=== PATIENT | male | born 1995 | race Hispanic/Latino ===

== ENCOUNTER 2022-04-22 00:22 | Emergency (ER) | payer OTHER ==
--- OUTSIDE RECORDS SUMMARY | 2022-04-22 00:25 | XMS REPORT | Continuity of Care Document ---
:1995 Author Organization [facility] t Address [address] [place] [address] Care Team Providers Name Role Phone GinnaAaronmukul Lehman Attending Clinician Unavailable FERNANDO KOHLER Attending Clinician Unavailable DESTINI VU Attending Clinician Unavailable Bernstein_H Attending Clinician Unavailable Bui_Q_WAG Attending Clinician Unavailable Ray Cho Admitting Clinician Unavailable Bernstein_H Admitting Clinician Unavailable Bui_Q_WAG Admitting Clinician Unavailable Payers Payer Name Policy Type Policy Number Effective Date Expiration Date Jude MIKE (EPO) [id number] 2018 00:00:00 Problems This patient has no known problems. Allergies, Adverse Reactions, Alerts Allergy Allergy Status Severity Reaction(s) Onset Inactive Treating Comm ents Source Name Type Date Date Clinician No Known DA Active U 2021-02 [facility] No Known DA Active U [facility] SEASONAL Allergy Active Mild Other [place] [facility] ([facility]) to Family substanc Practic e e Social History Smoking Status Start Date Stop Date Source Former Smoker [facility] Medications Ordered Filled Start Stop Current Ordering Indication Dosage Frequency Signature Comments Components Source Medication Medication Date Date Medication? Clinician (SIG) Name Name ciclopirox ciclopirox No ciclopirox [facility] 8 % topical 8 % topical 8 % F amily solution solution topical Prac tic APPLY TO APPLY TO solution e FUNGUS FUNGUS APPLY TO INFECTED INFECTED FUNGUS NAIL ONCE NAIL ONCE INFECTED DAILY DAILY NAIL ONCE PREFERABLY PREFERABLY DAILY AT BEDTIME AT BEDTIME PREFERABLY OR 8 HOURS OR 8 HOURS AT BEDTIME BEFORE BEFORE OR 8 HOURS WASHING WASHING BEFORE WASHING terbinafine terbinafine No 1 Q1D terbinafin [facility] HCl 250 mg HCl 250 mg e HCl 250 Family tablet Take tablet Take mg tablet Practic 1 tablet 1 tablet Take 1 e every day every day tablet by oral by oral every day route as route as by oral directed directed route as for 30 for 30 directed days. days. for 30 days. Vital Signs Vital Name Observation Time Observation Value Comments Source Height 2019-09-28 00:00:00 65 [in_i] [facility] BMI (Body Mass 2019-09-28 00:00:00 21.6 kg/m2 [facility] Index) Practice Body Weight 2019-09-28 00:00:00 130 [lb_av] [facility] Procedures This patient has no known procedures. Plan of Care Planned Activity Planned Date Details Comments Source Diagnostic Test 2019-09-28 ALT (alanine [facility] Pending 00:00:00 aminotransferase), Practice serum or plasma [code = ALT (alanine aminotransferase), serum or plasma] Diagnostic Test 2019-09-28 AST/SGOT (aspartate [facility] Pending 00:00:00 aminotransferase), Practice serum or plasma [code = AST/SGOT (aspartate aminotransferase), serum or plasma] Diagnostic Test 2019-09-28 creatinine, serum [facility] Pending 00:00:00 or plasma [code = Practice creatinine, serum or plasma] Diagnostic Test 2019-09-28 hepatitis C virus [facility] Pending 00:00:00 RNA, quant, PCR, Practice serum or plasma [code = hepatitis C virus RNA, quant, PCR, serum or plasma] Encounters Start End Encounter Admission Attending Care Care Encounter Source Date/Time Date/Time Type Type Clinicians Facility Department ID 2021-12-30 2021-12-30 Outpatient Jean Claude Riggins [facility] [id number] [facility] 07:25:00 07:25:[address] [facility] 2021-12-06 2021-12-06 Emergency E VERNELL KOHLERSE [facility] [id number] 03:49:00 14:19:[address] [facility] 2021-01-20 2021-01-20 Emergency E DESTINI VU SE MED [id number] 04:46:00 05:17:00 [facility] 2020-12-13 2020-12-13 Emergency E VERNELL KOHLERSE SE [id number] 10:32:00 13:42:00 [facility] 2020-03-24 2020-03-24 Outpatient Bernstein_H VFP VFP [id number] [facility] 12:08:00 12:08:00 Family Practic e 2019-10-27 2019-10-27 Outpatient Bui_Q_WAG VFP VFP [id number] [facility] 11:48:00 11:48:00 Family Practic e 2019-10-07 2019-10-07 Outpatient Bui_Q_WAG VFP VFP [id number] [id number] [facility] 02:02:00 02:02:00 [id number] Family Practic e 2019-10-01 2019-10-01 Outpatient Bui_Q_WAG VFP VFP [id number] [id number] [facility] 07:39:00 07:39:00 [id number] Family Practic e 2019-09-28 2019-09-28 Outpatient Bui_Q_WAG VFP VFP [id number] [id number] [facility] 05:09:00 05:09:00 Family Practic e 2019-09-28 2019-09-28 Ronnalyn VFP [place] - [id number] [facility] 00:00:00 00:00:00 [facility] Famil y RNFA: [id number] - Pract [place] [address], ([facility] [place] [address] , Ph. 2019-09-27 2019-09-27 Outpatient Bui_Q_WAG VFP VFP [id number] [facility] 03:50:00 03:50:00 Family Practic e Results Test Description Test Time Test Comments Results Result [facility] e Comments - XR FLUORO NDL 2021-12-30 14:57:00 [facility]Name: SUDARSHAN GONZALEZ : 1995 Sex: M Name: SUDARSHAN GONZALEZ [facility] : 1995 Age/S: 26 / M [address] Unit #: [id number] Loc: [place] [address] Phys: Jean Claude Chacko MD Acct: [id number] Dis Date: Status: [facility] PHONE #: [phone] Exam Date: 12/30/2021 1130 FAX #: [phone] Reason: EXAMS: CPT CODE: [id number] XR FLUORO NDL 83627 Fluoro Time: DAP (Gy m2): Air Kerma (mGy): REASON FOR EXAM: Back pain with radiculopathy Exam order date: 12/30/2021 11:23 AM Ordering:MD Tammie Location:[facility] PROCEDURE: Lumbar myelogram FINDINGS: After informed consent was obtained, the patient was brought to special procedures and placed prone on the table. All maximal barrier technique was applied, including washing hands with conventional soap and water or with alcohol-based hand rubs (ABHR), skin preparation, cap, mask, sterile gown, sterile gloves and sterile full body drape. Following the superficial and deep application of the local anesthetic, under fluoroscopic guidance, a spinal needle was advanced into L2 intervertebral foramen. Approximately 20 cc of CSF fluid was delivered into the intrathecal portion of the lumbar spine through the spinal needle MEDICATIONS: None. COMPLICATIONS: None. Blood loss: less than 5cc Radiation dose:25 sec Radiation time:6 mGy (Dose Area Product) Number of fluoroscopic images obtained: 4 images saved to PACS IMPRESSION: Technically successful lumbar myelogram at 1457 Reported and signed by: Jean Claude Chacko M.D. CC: Jean Claude Chacko MD; Ray Cho MD Technologist: Shelly Abreu RT(R) Trnscb Date/Time: 12/30/2021 (8827) NoahL Orig Print D/T: S: 12/30/2021 (1500) PAGE 1 Signed Report - XR MYELOGRAM 2021-12-30 L-SPINE 14:57:00 [facility])Name: KIRAN GONZALEZEL : 1995 Sex: M Name: SUDARSHAN GONZALEZ [facility] : 1995 Age/S: 26 / M [address] Unit #: [id number] Loc: [place] [address] Phys: Jean Claude Chacko MD Acct: [id number] Dis Date: Status: [facility] PHONE #: [phone] Exam Date: 12/30/2021 1130 FAX #: [phone] Reason: EXAMS: CPT CODE: [id number] XR MYELOGRAM L-SPINE 44661 Fluoro Time: 25 DAP (Gy m2): 0.90 Air Kerma (mGy): 6 REASON FOR EXAM: Back pain with radiculopathy Exam order date: 12/30/2021 11:23 AM Ordering:MD Tammie Location:[facility] PROCEDURE: Lumbar myelogram FINDINGS: After informed consent was obtained, the patient was brought to special procedures and placed prone on the table. All maximal barrier technique was applied, including washing hands with conventional soap and water or with alcohol-based hand rubs (ABHR), skin preparation, cap, mask, sterile gown, sterile gloves and sterile full body drape. Following the superficial and deep application of the local anesthetic, under fluoroscopic guidance, a spinal needle was advanced into L2 intervertebral foramen. Approximately 20 cc of CSF fluid was delivered into the intrathecal portion of the lumbar spine through the spinal needle MEDICATIONS: None. COMPLICATIONS: None. Blood loss: less than 5cc Radiation dose:25 sec Radiation time:6 mGy (Dose Area Product) Number of fluoroscopic images obtained: 4 images saved to PACS IMPRESSION: Technically successful lumbar myelogram at 1457 Reported and signed by: Jean Claude Chacko M.D. CC: Jean Claude Chacko MD; Ray Cho MD Technologist: Shelly WRIGHT(R) Trnscb Date/Time: 12/30/2021 (009) Arlyn Orig Print D/T: S: 12/30/2021 (8624) PAGE 1 Signed Report - CT L-SPINE 2021-12-30 W/CONTRAST 14:09:00 [facility])Name: SUDARSHAN GONZALEZ : 1995 Sex: M Name: SUDARSHAN GONZALEZ [facility] : 1995 Age/S: 26 / M [address] Unit #: [id number] Loc: [place] [address] Phys: Jean Claude Chacko MD Acct: [id number] Dis Date: Status: [facility] PHONE #: [phone] Exam Date: 12/30/2021 1144 FAX #: [phone] Reason: MYLEOGRAM EXAMS: CPT CODE: [id number] CT L-SPINE W/CONTRAST 30030 REASON FOR EXAM: Severe lower back pain associated with radiculopathy EXAM ORDER DATE: 12/30/2021 11:36 AM Ordering: MD Tammie Location:[facility] PROCEDURE: - CT L-SPINE W/CONTRAST FINDINGS: CT images of the lumbar spine were obtained without IV contrast at 2.5mm. Intrathecal contrast from the recent myelogram is present. Reconstructed coronal and sagittal images were also provided. Dose modulation, iterative reconstruction, and/or weight based adjustment of the MA/KV was utilized to reduce the radiation dose to as low as reasonably achievable. The osseous structures are unremarkable. No evidence of cord compression L1-2: Unremarkable L2-3: Unremarkable L3-4: Minimal broad-based disc herniation approximately 3 mm. Minimal mass effect on the thecal sac. Minimal narrowing of bilateral neural foramen L4-5: Minimal broad-based disc herniation approximately 4 mm. Minimal mass effect on the thecal sac. Minimal narrowing of bilateral neural foramen L5-S1: Minimal broad-based disc herniation approximately 3 mm. Minimal mass effect on the thecal sac. Minimal narrowing of bilateral neural foramen IMPRESSION: Minimal broad-based base disc herniation with minimal mass effect on the thecal sac and narrowing of the neuroforamen as described above at L3-4, L4-5, and L5-S1. at 1409 Reported and signed by: Jean Claude Chacko M.D. PAGE 1 Signed Report (CONTINUED) Name: SUDARSHAN GONZALEZ [facility] : 1995 Age/S: 26 / M [address] Unit #: [id number] Loc: [place], [place] [address] Phys: Jean Claude Chacko MD Acct: [id number] Dis Date: Status: [facility] PHONE #: [phone] Exam Date: 12/30/2021 1144 FAX #: [phone] Reason: MYLEOGRAM EXAMS: CPT CODE: [id number] CT L-SPINE W/CONTRAST 50047 (Continued) CC: Jean Claude Chacko MD; Ray Cho MD Technologist:Michelle Phan,RT(R),CT CTDI: DLP: Trnscb Date/Time: 12/30/2021 (1409) tED.VTL Orig Print D/T: S: 12/30/2021 (8678) PAGE 2 Signed Report PROTHROMBIN TIME 2021-12-30 09:23:00 Test Item Value Reference Range Interpretation Comme nts PROTHROMBIN TIME PATIENT (test 13.4 seconds 9.0-14.0 N code = PTP) INTERNATIONAL NORMAL RATIO 1.2 0.8-1.2 N T he therapeutic range for oral (test code = INR) anticoagul ant therapy formost indications is an international normalized rati o (INR)of between 2.0 and 3.0. The recommended the rapeutic INRrange for va rious clinical situations is l isted below: _Clinical Situa tion INR range Pulmonary embol ism treatment (2.0-3.0)Venous thrombosis treatmentVenous thrombosis prophylaxis (hi gh risk surgery)Prevent ion of systemic embolism from: Acute myocardial infarction Valv ular heart disease Atrial fibrillation Mechanical pros thetic heart valves (2.5-3.5 ) IS PATIENT ON ANTICOAGULANTS? NTHROMBOPLASTIN TIME [id number] 09:23:00 Test Item Value Reference Range Interpretation Comments THROMBOPLASTIN TIME PARTIAL 44.4 seconds 23.0-37.0 H (test code = PTT) IS PATIENT ON ANTICOAGULANTS? NPLATELET [id number] 09:16:00 Test Item Value Reference Range Interpretation Comments PLATELET COUNT (test code = PLT) 208 K/mm3 150-450 N
[2022-04-22 01:27] LABS: SARS-COV-2 RT PCR NEGATIVE (NEGATIVE)
[2022-04-22 01:53] LABS: Absolute Lymphocytes (CBC) 3.2 K/uL (0.7-4.9); Hematocrit 43.4 % (39.6-49.0); Lymphocytes % 37.9 % (15.3-44.8); MCV 86.4 fL (80-100); MPV 8.9 fL (7.6-11.3); RBC Red Blood Cell Count 5.02 M/uL (4.33-5.43)
[2022-04-22] MEDS ORDERED: PROMETHAZINE 25 MG TABLET ONE (01:59)
[2022-04-22] MEDS ORDERED: CODEINE 30MG/APAP 300MG TAB ONE (01:59)
[2022-04-22] MEDS ORDERED: NACHLORIDE 0.45% 1,000 ML IV ONE ×2 (02:00→02:44)
[2022-04-22] MEDS ORDERED: ONDANSETRON 4 MG/2 ML VIAL ONE (02:00)
[2022-04-22 02:15] LABS: Albumin 3.9 g/dL (3.4-5.0); Bilirubin Direct 0.1 mg/dL (0-0.2); Bilirubin Total 0.5 mg/dL (0.2-1.0); Potassium 3.7 mmol/L (3.5-5.1); Protein, Total 7.8 g/dL (6.4-8.2)
--- NOTE | 2022-04-22 02:18 | ER ---
Nurse's Notes [facility] Name: Tommie Meneses Age: 26 yrs Sex: Male : 1995 Arrival Date: 04/22/2022 Time: 00:26 Bed 20 Private MD: Diagnosis: Acute bronchitis, unspecified;Nausea with vomiting, unspecified Presentation: 04/22 00:45 Chief complaint: Patient states: cough for about a week getting worse with N/V , nose ke1 bleed , on ABT amoxicillin for 2 days now. Coronavirus screen:. Ebola Screen: No symptoms or risks identified at this time. Initial Sepsis Screen: Does the patient meet any 2 criteria? No. Patient's initial sepsis screen is negative. Does the patient have a suspected source of infection? No. Patient's initial sepsis screen is negative. Initial Sepsis Screen: Does the patient have a suspected source of infection? Yes:. Risk Assessment: Do you want to hurt yourself or someone else? Patient reports no desire to harm self or others. Onset of symptoms was April 18, 2022. 00:45 Method Of Arrival: Ambulatory ke1 00:45 Acuity: MILAGRO 3 ke1 00:53 Coronavirus screen: Vaccine status: Patient reports receiving the 2nd dose of the covid ke1 vaccine. Triage Assessment: 00:53 General: Appears in no apparent distress. Behavior is appropriate for age. Pain: Denies ke1 pain. GI: Reports nausea, vomiting, since yesterday. Historical: - Allergies: 00:53 No Known Allergies; ke1 - PMHx: 00:53 None; ke1 - PSHx: 00:53 None; ke1 - Immunization history:: Adult Immunizations up to date. - Social history:: Smoking status: Patient/guardian denies using tobacco, the patient reports quitting approximately 6 years ago. - Family history:: not pertinent. - Hospitalizations: : No recent hospitalization is reported. - History obtained from: spouse. Screenin:00 Abuse screen: Denies threats or abuse. Denies injuries from another. Nutritional ha1 screening: No deficits noted. 01:00 [facility] ED Fall Risk Assessment (Adult) History of falling in the last 3 months, ke1 including since admission No falls in past 3 months (0 pts) Confusion or Disorientation No (0 pts) Intoxicated or Sedated No (0 pts) Impaired Gait No (0 pts) Mobility Assist Device Used No (0 pt) Altered Elimination No (0 pt) Score/Fall Risk Level 0 - 2 = Low Risk. Tuberculosis screening: No symptoms or risk factors identified. Assessment: 01:00 GI: Abdomen is round non-distended. ke1 03:10 Reassessment: Patient and/or family updated on plan of care and expected duration. Pain ha1 level reassessed. Patient is alert, oriented x 3, equal unlabored respirations, skin warm/dry/pink. 03:33 Reassessment: awaiting on lab results. ha1 03:34 Reassessment: Patient not d/c because new order CT and blood work because of ke1 possibility of admission. Vital Signs: 00:45 BP 122 / 101; Pulse 77; Resp 17; Temp 97.6; Pulse Ox 99% on R/A; Weight 70.31 kg; ke1 Height 5 ft. 5 in. (165.10 cm); Pain 0/10; 01:00 BP 122 / 101; Pulse 78; Resp 16; Pulse Ox 98% on R/A; ha1 02:00 BP 138 / 79; Pulse 71; Resp 16 S; Pulse Ox 98% on R/A; ha1 05:33 BP 135 / 76; Pulse 74; Resp 17; Temp 97.6; Pulse Ox 100% ; Pain 0/10; ke1 00:45 Body Mass Index 25.79 (70.31 kg, 165.10 cm) ke1 ED Course: 00:26 Patient arrived in ED. jj6 00:27 Conrad Diggs MD is Attending Physician. sp4 00:38 Demarco Maloney RN is Primary Nurse. ke1 00:48 Triage completed. ke1 01:00 Arm band placed on left wrist. ke1 01:00 Placed in gown. Bed in low position. ke1 01:47 Inserted saline lock: 20 gauge in left antecubital area, using aseptic technique. ke1 03:18 Inserted saline lock: 22 gauge in right forearm, using aseptic technique. ke1 03:19 Hepatitis Panel Sent. ke1 05:32 No provider procedures requiring assistance completed. ke1 05:33 IV discontinued. ke1 Administered Medications: 02:03 Drug: Acetaminophen-Codeine (300 mg-30 mg) 2 tabs Route: PO; ke1 02:20 Follow up: Response: Marked relief of symptoms ke1 02:03 Drug: Zofran (Ondansetron) 8 mg Route: IVP; Site: left antecubital; ke1 02:20 Follow up: Response: Marked relief of symptoms ke1 02:03 Drug: NS 0.45 % 1000 ml Route: IV; Rate: bolus; Site: left antecubital; ke1 02:03 Drug: Phenergan (promethazine) 25 mg Route: PO; ke1 02:20 Follow up: Response: Marked relief of symptoms ke1 03:18 Drug: morphine 4 mg Route: IVP; Infused Over: 4 mins; Site: right forearm; ke1 03:45 Follow up: Response: Pain is decreased ke1 03:18 Drug: NS 0.45 % 1000 ml Route: IV; Rate: 125 ml/hr; Site: right forearm; ke1 Medication: 05:33 VIS not applicable for this client. ke1 Outcome: 02:18 Discharge ordered by . sp4 05:33 Discharged to home ambulatory. ke1 05:33 Condition: good 05:33 Discharge instructions given to patient. 05:34 Patient left the ED. ke1 Signatures: Louisa Rodriguez jj6 Demarco Maloney RN RN deya1 Page Camacho RN RN Conrad Dean MD MD sp4
--- NOTE | 2022-04-22 02:19 | EDPHYS ---
Physician Documentation [facility] Name: Tommie Meneses Age: 26 yrs Sex: Male : 1995 Arrival Date: 04/22/2022 Time: 00:26 Bed 20 Private MD: ED Physician Conrad Diggs HPI: 04/22 00:28 This 26 yrs old Male presents to ER via Unassigned with complaints of sp4 Nausea/Vomiting, Cough, Low Back Pain, Pelvic Pain. 00:28 26-year-old male presents with nausea, vomiting, cough, low back pain. sp4 02:11 26-year-old male with no significant past medical history presents with acute onset of sp4 moderate cough associated with vomiting. Cough started 1 week ago and 3 days ago patient developed vomiting associated with forceful coughing. Patient denied fever or bloody sputum. Patient denied history of tuberculosis. Patient reports that he has pain that radiates into the lower back after every cough. Pain is moderate. Patient denied body aches and denied history of recent illness. 02:11 Patient went to see his primary care doctor 2 days ago and he was prescribed Augmentin sp4 twice a day, he was prescribed Tessalon as needed for cough and he was prescribed Mucinex as needed. Historical: - Allergies: 00:53 No Known Allergies; ke1 - PMHx: 00:53 None; ke1 - PSHx: 00:53 None; ke1 - Immunization history:: Adult Immunizations up to date. - Social history:: Smoking status: Patient/guardian denies using tobacco, the patient reports quitting approximately 6 years ago. - Family history:: not pertinent. - Hospitalizations: : No recent hospitalization is reported. - History obtained from: spouse. ROS: 02:11 Constitutional: Negative for fever, chills, and weight loss, Eyes: Negative for injury, sp4 pain, redness, and discharge, ENT: Negative for injury, pain, and discharge, Neck: Negative for injury, pain, and swelling, Cardiovascular: Negative for chest pain, palpitations, and edema, Respiratory: Negative for shortness of breath, wheezing, patient reported cough, nonproductive cough and pain with cough that radiates into his back Abdomen/GI: Negative for abdominal pain, nausea, vomiting, diarrhea, and constipation, Back: Negative for injury. Patient reported back pain : Negative for injury, bleeding, discharge, and swelling, MS/Extremity: Negative for injury and deformity, Skin: Negative for injury, rash, and discoloration, Neuro: Negative for headache, weakness, numbness, tingling, and seizure, Psych: Negative for depression, anxiety, suicide ideation, homicidal ideation, and hallucinations, Allergy/Immunology: Negative for hives, rash, and allergies, Endocrine: Negative for neck swelling, polydipsia, polyuria, polyphagia, and marked weight changes, Hematologic/Lymphatic: Negative for swollen nodes, abnormal bleeding, and unusual bruising. Exam: 02:11 Constitutional: This is a well developed, well nourished patient who is awake, alert, sp4 and in no acute distress. Head/Face: Normocephalic, atraumatic. Eyes: Pupils equal round and reactive to light, extra-ocular motions intact. Lids and lashes normal. Conjunctiva and sclera are non-icteric and not injected. Cornea within normal limits. Periorbital areas with no swelling, redness, or edema. ENT: Nares patent. No nasal discharge, no septal abnormalities noted. Tympanic membranes are normal and external auditory canals are clear. Oropharynx with no redness, swelling, or masses, exudates, or evidence of obstruction, uvula midline. Mucous membranes moist. Neck: Trachea midline, no thyromegaly or masses palpated, and no cervical lymphadenopathy. Supple, full range of motion without nuchal rigidity, or vertebral point tenderness. No Meningismus. Chest/axilla: Normal chest wall appearance and motion. Nontender with no deformity. No lesions are appreciated. Cardiovascular: Regular rate and rhythm with a normal S1 and S2. No gallops, murmurs, or rubs. Normal PMI, no JVD. No pulse deficits. Respiratory: Lungs have equal breath sounds bilaterally, clear to auscultation and percussion. No rales, rhonchi or wheezes noted. No increased work of breathing, no retractions or nasal flaring. Abdomen/GI: Soft, non-tender, with normal bowel sounds. No distension or tympany. No guarding or rebound. No evidence of tenderness throughout. Back: No spinal tenderness. No costovertebral tenderness. Full range of motion. Skin: Warm, dry with normal turgor. Normal color with no rashes, no lesions, and no evidence of cellulitis. MS/ Extremity: Pulses equal, no cyanosis. Neurovascular intact. Full, normal range of motion. Neuro: Awake and alert, GCS 15, oriented to person, place, time, and situation. Cranial nerves II-XII grossly intact. Motor strength 5/5 in all extremities. Sensory grossly intact. Cerebellar exam normal. Normal gait. Psych: Awake, alert, with orientation to person, place and time. Behavior, mood, and affect are within normal limits. Vital Signs: 00:45 BP 122 / 101; Pulse 77; Resp 17; Temp 97.6; Pulse Ox 99% on R/A; Weight 70.31 kg; ke1 Height 5 ft. 5 in. (165.10 cm); Pain 0/10; 01:00 BP 122 / 101; Pulse 78; Resp 16; Pulse Ox 98% on R/A; ha1 02:00 BP 138 / 79; Pulse 71; Resp 16 S; Pulse Ox 98% on R/A; ha1 05:33 BP 135 / 76; Pulse 74; Resp 17; Temp 97.6; Pulse Ox 100% ; Pain 0/10; ke1 00:45 Body Mass Index 25.79 (70.31 kg, 165.10 cm) ke1 MDM: 00:42 Patient medically screened. sp4 02:11 Differential diagnosis: gastroenteritis, Pneumonia, acute bronchitis, acute infective sp4 bronchitis, pleuritic chest pain, pleurisy, viral upper respiratory infection. Historians other than the Patient: Spouse/Significant Other: . ED course: Patient's symptoms have improved after medications in the emergency room. 02:19 Data reviewed: vital signs, nurses notes, lab test result(s), CBC, electrolytes, sp4 radiologic studies, plain films. 04:47 Consideration of Admission/Observation Patient was admitted/placed on observation. sp4 Escalation of care including admission/observation considered. Management of patient was discussed with the following: Hospitalist: CT revealed no signs of pancreatitis. Response to treatment: the patient's symptoms have markedly improved after treatment. ED course: 26-year-old male presents with persistent cough associated with vomiting and back pain. Labs revealed elevated lipase however CT abdomen pelvis and abdominal ultrasound revealed no abnormalities. It was determined safe for patient to be released home with management for cough and antibiotics as well. Patient has prescription for p.o. Augmentin and he was advised to continue this antibiotic. Will prescribe medications for cough as needed at home. Will advise p.o. cough suppressants [id number] as well. . 04/22 00:29 Order name: COVID-19 SARS RT PCR sp4 04/22 00:29 Order name: Influenza Screen (a \T\ B) sp4 04/22 00:49 Order name: Influenza Screen (A EDMS 04/22 00:55 Order name: BMP sp4 04/22 00:55 Order name: CBC with Diff sp4 04/22 00:55 Order name: CPK sp4 04/22 00:55 Order name: Hepatic Function sp4 04/22 00:55 Order name: Lipase sp4 04/22 00:55 Order name: NT PRO-BNP sp4 04/22 00:55 Order name: XRAY Chest Pa And Lat (2 Views) sp4 04/22 00:55 Order name: IV Saline Lock; Complete Time: 02:04 4 04/22 00:55 Order name: Labs collected and sent; Complete Time: 02:04 sp4 04/22 00:55 Order name: O2 Sat Monitoring; Complete Time: 02:04 sp4 04/22 01:28 Order name: COVID-19/FLU A+B; Complete Time: 01:36 EDMS 04/22 01:54 Order name: CBC with Automated Diff; Complete Time: 01:59 EDMS 04/22 02:15 Order name: Basic Metabolic Panel; Complete Time: 02:26 EDMS 04/22 02:15 Order name: Liver (Hepatic) Function; Complete Time: 02:26 EDMS 04/22 02:15 Order name: Creatine Phosphokinase; Complete Time: 02:26 EDMS 04/22 02:15 Order name: NT PRO-BNP; Complete Time: 02:26 EDMS 04/22 02:15 Order name: Lipase; Complete Time: 02:26 EDMS 04/22 02:28 Order name: CT Abd/Pelvis - IV Contrast Only: Acute pancreatitis sp4 04/22 02:33 Order name: Hepatitis Panel sp4 04/22 02:39 Order name: US Abdomen Limited la1 Administered Medications: 02:03 Drug: Acetaminophen-Codeine (300 mg-30 mg) 2 tabs Route: PO; ke1 02:20 Follow up: Response: Marked relief of symptoms ke1 02:03 Drug: Zofran (Ondansetron) 8 mg Route: IVP; Site: left antecubital; ke1 02:20 Follow up: Response: Marked relief of symptoms ke1 02:03 Drug: NS 0.45 % 1000 ml Route: IV; Rate: bolus; Site: left antecubital; ke1 02:03 Drug: Phenergan (promethazine) 25 mg Route: PO; ke1 02:20 Follow up: Response: Marked relief of symptoms ke1 03:18 Drug: morphine 4 mg Route: IVP; Infused Over: 4 mins; Site: right forearm; ke1 03:45 Follow up: Response: Pain is decreased ke1 03:18 Drug: NS 0.45 % 1000 ml Route: IV; Rate: 125 ml/hr; Site: right forearm; ke1 Disposition Summary: 04/22/22 02:18 Discharge Ordered Location: Home sp4 Condition: Stable sp4 Problem: new sp4 Symptoms: have improved sp4 Diagnosis - Acute bronchitis, unspecified sp4 - Nausea with vomiting, unspecified sp4 Followup: sp4 - With: Private Physician - When: 7 - 10 days - Reason: Discharge Instructions: - Discharge Summary Sheet la1 - Acute Bronchitis, Adult sp4 Forms: - Work release form la1 - Medication Reconciliation Form sp4 - Thank You Letter sp4 - Antibiotic Education sp4 - Prescription Opioid Use sp4 Prescriptions: - acetaminophen-codeine 300-15 mg Oral tablet - take 1 tablet by ORAL route every 6 hours PRN cough; 20 tablet; Refills: 0, sp4 Product Selection Permitted - promethazine 25 mg Oral Tablet - take 1 tablet by ORAL route every 6 hours As needed; 20 tablet; Refills: 0, sp4 Product Selection Permitted Signatures: Dispatcher [employer] Demarco Heath RN RN ke1 Conrad Diggs MD MD sp4
[2022-04-22] MEDS ORDERED: MORPHINE 4 MG/ML SYR ONE (02:44)
[2022-04-22 06:02] VITALS: TEMP 97.6
[2022-04-22 06:05] VITALS: BP 135/76; O2SAT 100
[2022-04-22 07:05] LABS: Hepatitis B Core IgM Nonreactive (Nonreactive); Hepatitis B surface AG Interp. Nonreactive (Nonreactive); Hepatitis C Virus Ab Nonreactive (Nonreactive)
--- NOTE | 2022-04-22 13:21 | RAD REPORT ---
EXAM DESCRIPTION: CT - Abdomen Pelvis W Contrast - 04/22/2022 6:20 am CLINICAL HISTORY: ABD PAIN COMPARISON: None. TECHNIQUE: CT ABDOMEN PELVIS WITH IV CONTRAST on 04/22/2022 2:28 AM SENIOR WATER/WASTEWATER ENGINEER This exam was performed according to our departmental dose-optimization program, which includes autom ated exposure control, adjustment of the mA and/or kV according to patient size and/or use of iterati ve reconstruction technique. FINDINGS: Lower lungs are clear. Abdomen: Liver is mildly fatty in attenuation. There is no biliary dilatation. Gallbladder is normall y distended. The pancreas and spleen are normal in appearance. Adrenal glands and left kidney are nor mal. 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 Abdominal aorta is normal in course and caliber without aneurysm. There is no free air. There is no r etroperitoneal adenopathy. Pelvis: There is no bowel obstruction. Urinary bladder is unremarkable. There is no free fluid. Appen matilde is normal. Skeleton: There are no acute osseous findings. No suspicious bony lesions. IMPRESSION: No acute process. Electronically signed by: George Morrow MD 04/22/2022 4:05 AM SENIOR WATER/WASTEWATER ENGINEER Due to temporary technical issues with the PACS/Fluency reporting system, reports are being signed by the in house radiologists without review as a courtesy to insure prompt reporting. The interpreting radiologist is fully responsible for the content of the report.
--- NOTE | 2022-04-22 13:24 | RAD REPORT ---
EXAM DESCRIPTION: US - Abdomen Exam Limited - 04/22/2022 3:07 am CLINICAL HISTORY: Elevated LFT COMPARISON: None. TECHNIQUE: US ABDOMEN LIMITED 04/22/2022 2:39 AM CRUSHER FEEDER FINDINGS: The liver is echogenic. Gallbladder is normally distended without wall thickening, gallsto manuel or pericholecystic fluid. IMPRESSION: Probable hepatic steatosis. Normal gallbladder. Electronically signed by: George Morrow MD 04/22/2022 4:05 AM CRUSHER FEEDER Due to temporary technical issues with the PACS/Fluency reporting system, reports are being signed by the in house radiologists without review as a courtesy to insure prompt reporting. The interpreting radiologist is fully responsible for the content of the report.
--- NOTE | 2022-04-22 14:29 | RAD REPORT ---
EXAM DESCRIPTION: RAD - Chest Pa And Lat (2 Views) - 04/22/2022 1:10 am CLINICAL HISTORY: Chest pain. TECHNIQUE: Chest x-ray 2 views, PA and lateral. COMPARISON: None. FINDINGS: Heart: Normal size and configuration. Mediastinal Structures: Normal and midline. Lung Georges: Clear for active infiltrates. Pulmonary Vascularity: Normal. Pleural Space: No active disease. Bony Structures: Normal. IMPRESSION: Normal study. Electronically signed by: Tulio Edge MD 04/22/2022 1:35 AM PULVERIZER OPERATOR Due to temporary technical issues with the PACS/Fluency reporting system, reports are being signed by the in house radiologists without review as a courtesy to insure prompt reporting. The interpreting radiologist is fully responsible for the content of the report.
== END 2022-04-22 05:34 | disposition home or self-care (01) ==
LOC: ER 00:22
DX: R11.2 Nausea with vomiting, unspecified (principal); J20.9 Acute bronchitis, unspecified; Z20.822 Contact with and (suspected) exposure to COVID-19
CPT/HCPCS: 85025; 80048; 36415; 82550; 80076; 83690; 83880; 0240U; 80074; 74177; 71046; 76705; 99284; Q9967; Q0169; J2405

== ENCOUNTER 2022-04-25 19:38 | Emergency (ER) | payer OTHER ==
--- OUTSIDE RECORDS SUMMARY | 2022-04-25 19:40 | XMS REPORT | Continuity of Care Document ---
:[address] [facility] t Address [address] [place] [address] Care Team Providers Name Role Phone GinnaAaronmukul Lehman Attending Clinician Unavailable FERNANDO KOHLER Attending Clinician Unavailable DESTINI VU Attending Clinician Unavailable Bernstein_H Attending Clinician Unavailable Bui_Q_WAG Attending Clinician Unavailable Ray Cho Admitting Clinician Unavailable Bernstein_H Admitting Clinician Unavailable Bui_Q_WAG Admitting Clinician Unavailable Payers Payer Name Policy Type Policy Number Effective Date Expiration Date S cindy MIKE (EPO) [id number] 2018 00:00:00 Problems This patient has no known problems. Allergies, Adverse Reactions, Alerts Allergy Allergy Status Severity Reaction(s) Onset Inactive Treating Comm ents Source Name Type Date Date Clinician No Known DA Active U 2021-02 [facility]ie 1-10 [facility] s 00:00: e 00 [facility] No Known DA Active U [facility] Intolera 5-17 [facility] nces 00:00: e 00 Medical Center SEASONAL Allergy Active Mild Other Village E (91) to Family substanc Practic e e Social History Smoking Status Start Date Stop Date Source Former Smoker Village Family P brigette Medications Ordered Filled Start Stop Current Ordering Indication Dosage Frequency Signature Comments Components Source Medication Medication Date Date Medication? Clinician (SIG) Name Name ciclopirox ciclopirox No ciclopirox [facility] 8 % topical 8 % topical 8 [...] WASHING terbinafine terbinafine No 1 Q1D terbinafin [facility] 250 mg HCl 250 mg e HCl [...] Comments Source Height 2019-09-28 00:00:00 65 [in_i] [facility] BMI (Body Mass 2019-09-28 00:00:00 21.6 kg/m2 [facility] Index) Practice Body Weight 2019-09-28 00:00:00 130 [lb_av] [facility] Procedures This patient has no known procedures. Plan of Care Planned Activity Planned Date Details Comments Source Diagnostic Test 2019-09-28 ALT (alanine [facility] Pending 00:00:00 aminotransferase), Practice serum or plasma [code = ALT (alanine aminotransferase), serum or plasma] Diagnostic Test 2019-09-28 AST/SGOT (aspartate [facility] Pending 00:00:00 aminotransferase), Practice serum or plasma [code = AST/SGOT (aspartate aminotransferase), serum or plasma] Diagnostic Test 2019-09-28 creatinine, serum [facility] Pending 00:00:00 or plasma [code = Practice creatinine, serum or plasma] Diagnostic Test 2019-09-28 hepatitis C virus [facility] Pending 00:00:00 RNA, quant, PCR, Practice serum or plasma [code = hepatitis C virus RNA, quant, PCR, serum or plasma] Encounters Start End Encounter Admission Attending Care Care Encounter Source Date/Time Date/Time Type Type Clinicians Facility Department ID 2021-12-30 2021-12-30 Outpatient RAYMOND Jean Claude Chacko [facility] [id number] [facility] 07:25:00 07:25:00 21 [facility] 2021-12-06 2021-12-06 Emergency E CHUKWUMA, [facility] SE [id number] 03:49:00 14:19:00 [facility] 2021-01-20 2021-01-20 Emergency E DESTINI VU SE MED [id number] 04:46:00 05:17:[facility] 2020-12-13 2020-12-13 [id number] 10:32:00 13:42:00 [facility] 2020-03-24 2020-03-24 Outpatient Bernstein_H VFP VFP [id number] [facility] 12:08:00 12:08:00 Family Practic e 2019-10-27 2019-10-27 Outpatient Bui_Q_WAG VFP VFP [id number] [facility] 11:48:00 11:48:00 Family Practic e 2019-10-07 2019-10-07 Outpatient Bui_Q_WAG VFP VFP [id number] [facility] 02:02:00 02:02:00 [id number] Family Practic e 2019-10-01 2019-10-01 Outpatient Bui_Q_WAG VFP VFP [id number] [facility] 07:39:00 07:39:00 [id number] Family Practic e 2019-09-28 2019-09-28 Outpatient Bui_Q_WAG VFP VFP [id number] [facility] 05:09:00 05:09:00 Family Practic e 2019-09-28 2019-09-28 Ronnalyn VFP [place] - [id number] [facility] 00:00:00 00:00:00 [place] [facility] 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 2019-09-27 2019-09-27 Outpatient Bui_Q_WAG VFP VFP [id number] [facility] 03:50:00 03:50:00 Family Practic e Results Test Description Test Time Test Comments Results Result [facility] e Comments - XR FLUORO NDL 2021-12-30 14:57:00 [facility]Name: SUDARSHAN GONZALEZ : 1995 Sex: M Name: SUDARSHAN GONZALEZ [facility] : 1995 Age/S: 26 / M [address] Unit #: [id number] Loc: [place] [address] Phys: Jean Claude Chacko MD Acct: [id number] Dis Date: Status: [facility] PHONE #: [phone] Exam Date: 12/30/2021 1130 FAX #: [phone] Reason: EXAMS: CPT CODE: [id number] XR FLUORO NDL 85642 Fluoro Time: DAP (Gy m2): Air Kerma (mGy): REASON FOR EXAM: Back pain with radiculopathy Exam order date: 12/30/2021 11:23 AM Ordering:MD Tammie Location:[facility] PROCEDURE: Lumbar myelogram FINDINGS: After [...] MD Technologist: Shelly WRIGHT(R) Trnscb Date/Time: 12/30/2021 (8426) NoahL Orig Print D/T: S: 12/30/2021 (9783) PAGE 1 Signed Report - XR MYELOGRAM 2021-12-30 L-SPINE 14:57:00 [facility])Name: SUDARSHAN GONZALEZ : 1995 Sex: M Name: SUDARSHAN GONZALEZ [facility] : 1995 Age/S: 26 / M [address] [facility] Unit #: [id number] Loc: [place] [address] Phys: Jean Claude Chacko MD Acct: [id number] Dis Date: Status: [facility] PHONE #: [phone] Exam Date: 12/30/2021 1130 FAX #: [phone] Reason: EXAMS: CPT CODE: [id number] XR MYELOGRAM L-SPINE 20462 Fluoro Time: 25 DAP (Gy m2): 0.90 Air Kerma (mGy): 6 REASON FOR EXAM: Back pain with radiculopathy Exam order date: 12/30/2021 11:23 AM Ordering:MD Tammie Location:[facility] PROCEDURE: Lumbar myelogram FINDINGS: After [...] MD Technologist: Shelly WRIGHT(R) Trnscb Date/Time: 12/30/2021 (5751) AriesVTL Orig Print D/T: S: 12/30/2021 (5125) PAGE 1 Signed Report - CT L-SPINE 2021-12-30 W/CONTRAST 14:09:00 [facility])Name: SUDARSHAN GONZALEZ : 1995 Sex: M Name: SUDARSHAN GONZALEZ [facility] : 1995 Age/S: 26 / M [facility] Unit #: [id number] Loc: [place] [address] Phys: Jean Claude Chacko MD Acct: [id number] Dis Date: Status: [facility] PHONE #: [phone] Exam Date: 12/30/2021 1144 FAX #: [phone] Reason: MYLEOGRAM EXAMS: CPT CODE: [id number] CT L-SPINE W/CONTRAST 00292 REASON FOR EXAM: Severe lower back pain associated with radiculopathy EXAM ORDER DATE: 12/30/2021 11:36 AM Ordering: MD Tammie Location:[facility] PROCEDURE: - CT L-SPINE W/CONTRAST [...] M.D. PAGE 1 Signed Report (CONTINUED) Name: CARLOSSUDARSHAN [facility] : 1995 Age/S: 26 / M [address] [facility] Unit #: [id number] Loc: [place] [address] Phys: Jean Claude Chacko MD Acct: [id number] Dis Date: Status: [facility] PHONE #: [phone] Exam Date: 12/30/2021 1144 FAX #: [phone] Reason: MYLEOGRAM EXAMS: CPT CODE: [id number] CT L-SPINE W/CONTRAST 60448 (Continued) CC: Jean Claude Chacko MD; Ray Cho MD Technologist:Michelle Phan,RT(R),CT CTDI: DLP: Trnscb Date/Time: 12/30/2021 (7694) tABILIO Orig Print D/T: S: 12/30/2021 (0490) PAGE 2 Signed Report THROMBOPLASTIN TIME PARTIAL 2021-12-30 09:23:00 Test Item Value Reference Range Interpretation Comme nts THROMBOPLASTIN TIME PARTIAL (test code = PTT) 44.4 seconds 23.0-37. 0 H IS PATIENT ON ANTICOAGULANTS? NPROTHROMBIN [id number] 09:23:00 Test Item Value Reference Range Interpretation Comments PROTHROMBIN TIME 13.4 seconds 9.0-14.0 N PATIENT (test code = PTP) INTERNATIONAL NORMAL 1.2 0.8-1.2 N The the rapeutic range RATIO (test code = for oral INR) anticoagulant t herapy formost indicat ions is an internati onal normalized rati o (INR)of between 2.0 and 3.0. The recommended therapeutic INR range for various cli nical situations is l isted below: Clinical Situat ion INR range Pulmonary embol ism treatment (2.0-3.0)Venous thrombosis treatmentVenous thrombosis prophylaxis (hi gh risk surgery)Prevent ion of systemic emboli sm from: Acute myocardial infa rction Valvular heart disease Atrial fibrillation Mechanical pros thetic heart valves (2.5-3.5) IS PATIENT ON ANTICOAGULANTS? NPLATELET [id number] 09:16:00 Test Item Value Reference Range Interpretation Comments PLATELET COUNT (test code = PLT) 208 K/mm3 150-450 N
--- NOTE | 2022-04-25 21:22 | RAD REPORT ---
EXAM DESCRIPTION: RAD - Chest Pa And Lat (2 Views) - 04/25/2022 9:17 pm CLINICAL HISTORY: CHEST PAIN Chest pain. COMPARISON: Chest Pa And Lat (2 Views) dated 04/22/2022 FINDINGS: The lungs are clear. The heart is normal in size. No displaced fractures. IMPRESSION: No acute or concerning finding suspected.
[2022-04-25 21:56] LABS: Absolute Lymphocytes (CBC) 3.1 K/uL (0.7-4.9); Hematocrit 44.7 % (39.6-49.0); Lymphocytes % 33.1 % (15.3-44.8); MCV 87.2 fL (80-100); MPV 9.8 fL (7.6-11.3); RBC Red Blood Cell Count 5.12 M/uL (4.33-5.43)
[2022-04-25 22:18] LABS: ALT/SGPT 129 U/L (16-61); AST/SGOT 50 U/L (15-37); Albumin 4.2 g/dL (3.4-5.0); Alkaline Phosphatase 139 U/L (45-117); BUN Blood Urea Nitrogen 22 mg/dL (7-18); Bicarbonate 27 mmol/L (21-32); Bilirubin Total 0.5 mg/dL (0.2-1.0); Glomerular Filtration Rate 101 ml/min (=/>90); Glucose Level 106 mg/dL (74-106); Lipase 177 U/L (13-75); Potassium 3.8 mmol/L (3.5-5.1); Protein, Total 8.3 g/dL (6.4-8.2); Sodium Level 138 mmol/L (136-145)
[2022-04-25 22:24] LABS: Troponin High Sensitivity < 3.0 pg/mL (<58.9)
[2022-04-25] MEDS ORDERED: FAMOTIDINE 20 MG/2 ML VIAL IV ONE (23:51)
[2022-04-25] MEDS ORDERED: MORPHINE 4 MG/ML SYR ONE (23:51)
[2022-04-25] MEDS ORDERED: NA CHLORIDE 0.9% 1,000 ML ONE (23:51)
[2022-04-25] MEDS ORDERED: ONDANSETRON 4 MG/2 ML VIAL ONE (23:51)
[2022-04-26] MEDS ORDERED: HYDROCODONE/CHLORPHEN 5 ML/OSYR ONE (00:30)
[2022-04-26 00:52] VITALS: BP 125/74; TEMP 98.1; O2SAT 99
--- NOTE | 2022-04-26 13:02 | EKG ---
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
--- NOTE | 2022-05-12 14:08 | ER ---
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 Coronavirus screen: Vaccine status: Patient reports receiving the 2nd dose of the covid vaccine. cough unrelated to allergies, muscle pain, vomiting. Ebola Screen: No symptoms or risks identified at this time. Initial Sepsis Screen: Does the patient meet any 2 criteria? No. Patient's initial sepsis screen is negative. Does the patient have a suspected source of infection? No. Patient's initial sepsis screen is negative. Risk Assessment: Do you want to hurt yourself or someone else? Patient reports no desire to harm self or others. Onset of symptoms was April 11, 2022. 20:03 Method Of Arrival: Ambulatory ll3 20:03 Acuity: [place] 3 ll3 Triage Assessment: 04/26 00:00 General: Appears in no apparent distress. comfortable, Behavior is calm, cooperative. aa9 Respiratory: Reports cough that is productive. GI: Reports vomiting. 00:00 Pain: Complains of pain in abdomen Is intermittent, Aggravated by coughing. Neuro: No aa9 deficits noted. Cardiovascular: Patient's skin is warm and dry. 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 - Social history:: Smoking status: Patient denies any tobacco usage or history of. Screenin:49 [facility] ED Fall Risk Assessment (Adult) History of falling in the last 3 months, mb9 including since admission No falls in past 3 months (0 pts) Confusion or Disorientation No (0 pts) Intoxicated or Sedated No (0 pts) Impaired Gait No (0 pts) Mobility Assist Device Used No (0 pt) Altered Elimination No (0 pt) Score/Fall Risk Level 0 - 2 = Low Risk Oriented to surroundings, Maintained a safe environment, Educated pt \T\ family on fall prevention, incl call for assistance when getting out of bed. Abuse screen: Denies threats or abuse. Nutritional screening: No deficits noted. Tuberculosis screening: No symptoms or risk factors identified. Assessment: 04/26 00:30 General: Appears in no apparent distress. comfortable, Behavior is calm, cooperative, aa9 appropriate for age. Neuro: Level of Consciousness is awake, alert, obeys commands. Respiratory: Reports cough that is productive. Vital Signs: 04/25 20:03 BP 125 / 84; Pulse 84; Resp 18; Temp 98.6(O); Pulse Ox 96% on R/A; Weight 68.04 kg (R); ll3 Height 5 ft. 5 in. (R); Pain 05/29; 04/26 00:30 BP 125 / 74; Pulse 72; Resp 19 S; Temp 98.1(O); Pulse Ox 99% on R/A; aa9 04/25 20:03 Body Mass Index 24.96 (68.04 kg, 165.1 cm) ll3 04/25 20:03 Pain Scale: Adult ll3 ED Course: 04/25 19:41 Patient arrived in ED. ja2 20:05 Luda Patterson FNP-C is [facility]. kb 20:05 Franklin Phan MD is Attending Physician. kb 20:07 Triage completed. ll3 20:07 Arm band placed on. ll3 21:19 Chest Pa And Lat (2 Views) XRAY In Process Unspecified. EDMS 21:43 Inserted saline lock: 20 gauge in left antecubital area, using aseptic technique. Blood jb5 collected. 21:44 Troponin High Sensitivity Sent. jb5 21:44 CBC with Diff Sent. jb5 21:44 CMP Sent. jb5 21:44 Lipase Sent. jb5 23:48 Bed in low position. Call light in reach. Side rails up X 1. Client placed on mb9 continuous cardiac and pulse oximetry monitoring. NIBP monitoring applied. Door closed. Noise minimized. Warm blanket given. 23:49 No provider procedures requiring assistance completed. mb9 04/26 00:20 Cindy Fry, RN is Primary Nurse. aa9 00:31 IV discontinued, intact, bleeding controlled, No redness/swelling at site. Pressure aa9 dressing applied. Administered Medications: 04/25 23:40 Drug: NS 0.9% IV 1000 ml Route: IV; Rate: 1000 ml; Site: left antecubital; aa9 04/26 00:30 Follow up: Response: No adverse reaction; IV Status: Completed infusion; IV Intake: aa9 800ml 04/25 23:42 Drug: Famotidine IVP 20 mg Route: IVP; Site: left antecubital; aa9 04/26 00:21 Follow up: Response: No adverse reaction 9 04/25 23:49 Drug: Ondansetron IVP 4 mg Route: IVP; Site: left antecubital; aa9 04/26 00:21 Follow up: Response: No adverse reaction 9 04/25 23:56 Drug: morphine IVP or IV 4 mg Route: IVP; Infused Over: 4 mins; Site: left antecubital; aa9 04/26 00:21 Follow up: Response: No adverse reaction; Pain is decreased aa9 00:30 Drug: Tussionex Pennkinetic ER PO Suspension 5 ml Route: PO; aa9 Medication: 04/25 23:48 VIS not applicable for this client. mb9 Intake: 04/26 00:30 IV: 800ml; Total: 800ml. aa9 Outcome: 00:07 Discharge ordered by MD. shaffer 00:21 Condition: stable aa9 00:31 Discharged to home ambulatory, with significant other. aa9 00:31 Discharge instructions given to patient, Instructed on discharge instructions, follow up and referral plans. medication usage, Demonstrated understanding of instructions, medications, Prescriptions given X 1. 00:31 Patient left the ED. aa9 Signatures: Dispatcher [employer] EDMS Luda Patterson, CERTIFIED PUBLIC ACCOUNTANT-C CERTIFIED PUBLIC ACCOUNTANT-CkLouisa Brooks jbEmmie Daniel Lynsea, RN RN ll3 Cindy Fry RN RN aa9 Marlena Awad RN RN mb9
--- NOTE | 2022-05-12 14:09 | EDPHYS ---
Physician Documentation [facility] Name: Tommie Meneses Age: 26 yrs Sex: Male : 1995 Arrival Date: 04/25/2022 Time: 19:41 Bed 12 Private MD: ED Physician Franklin Phan HPI: 04/25 23:14 This 26 yrs old Male presents to ER via Ambulatory with complaints of kb Vomiting, Abdominal Pain, Cough. 23:14 The patient has been recently seen at the [facility] Emergency kb Department, this week, for similar complaints labs were performed, CT scan was performed. 23:14 The patient or guardian reports cough, that is intermittent, described as moderate. kb Onset: The symptoms/episode began/occurred 2 week(s) ago. Severity of symptoms: At their worst the symptoms were moderate, in the emergency department the symptoms are unchanged. Modifying factors: The symptoms are alleviated by nothing, the symptoms are aggravated by nothing. Associated signs and symptoms: Pertinent positives: chest pain, vomiting. The patient has not experienced similar symptoms in the past. 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 - Social history:: Smoking status: Patient denies any tobacco usage or history of. ROS: 23:11 Constitutional: Negative for fever, chills, and weight loss. kb 23:11 Respiratory: Positive for cough. 23:11 Abdomen/GI: Positive for abdominal pain, nausea and vomiting. 23:11 All other systems are negative. 23:11 Cardiovascular: Positive for chest pain. kb Exam: 22:24 Constitutional: This is a well developed, well nourished patient who is awake, alert, kb and in no acute distress. Head/Face: Normocephalic, atraumatic. ENT: Moist Mucous membranes Chest/axilla: Normal chest wall appearance and motion. Cardiovascular: Regular rate and rhythm with a normal S1 and S2. No gallops, murmurs, or rubs. No pulse deficits. Respiratory: Respirations even and unlabored. No increased work of breathing. Talking in full sentences Skin: Warm, dry with normal turgor. Normal color. MS/ Extremity: Pulses equal, no cyanosis. Neurovascular intact. Full, normal range of motion. Neuro: Awake and alert, GCS 15, oriented to person, place, time, and situation. Moves all extremities. Normal gait. 22:24 ECG was reviewed by the Attending Physician. 23:11 Abdomen/GI: Inspection: abdomen appears normal, Bowel sounds: normal, Palpation: soft, kb in all quadrants, mild abdominal tenderness, in the left lower quadrant. Vital Signs: 20:03 BP 125 / 84; Pulse 84; Resp 18; Temp 98.6(O); Pulse Ox 96% on R/A; Weight 68.04 kg (R); ll3 Height 5 ft. 5 in. (R); Pain 05/29; 04/26 00:30 BP 125 / 74; Pulse 72; Resp 19 S; Temp 98.1(O); Pulse Ox 99% on R/A; aa9 04/25 20:03 Body Mass Index 24.96 (68.04 kg, 165.1 cm) ll3 04/25 20:03 Pain Scale: Adult ll3 MDM: 04/25 20:06 Patient medically screened. kb 23:12 Differential diagnosis: Nonspecific abd pain, gastritis, pancreatitis, viral kb gastroenteritis, COVID, flu, pneumonia. Data reviewed: vital signs, nurses notes. Management of patient was discussed with the following: Dr. Phan. 23:13 ED course: patient is a 26-year-old male who presents for cough that started 2 weeks kb ago. Reports cough has been causing vomiting and abdominal pain. Reports chest pain started today. Chest x-ray, EKG, serum labs ordered. Liver enzymes and lipase elevated. Reviewed diagnostic results from April 22 visit and labs not drastically changed. CT done on April 22 revealed no acute findings. Will give medications to treat symptoms and reassess.. 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 04/25 20:09 Order name: CBC with Diff; Complete Time: 22:12 kb 04/25 20:09 Order name: CMP; Complete Time: 22:37 kb 04/25 20:09 Order name: Lipase; Complete Time: 22:37 kb 04/25 20:09 Order name: Troponin High Sensitivity; Complete Time: 22:37 kb 04/25 20:09 Order name: Chest Pa And Lat (2 Views) XRAY; Complete Time: 21:28 kb 04/25 20:09 Order name: EKG; Complete Time: 20:10 kb 04/25 20:09 Order name: IV Saline Lock; Complete Time: 21:44 kb 04/25 20:09 Order name: Labs collected and sent; Complete Time: 21:44 kb 04/25 20:09 Order name: EKG - Nurse/Tech; Complete Time: 21:43 kb EC/07 22:24 Rate is 73 beats/min. Rhythm is regular. QRS [place] is Normal. MI interval is normal at kb 156 msec. QRS interval is normal at 80 msec. QT interval is normal at 403 msec. Administered Medications: 23:40 Drug: NS 0.9% IV 1000 ml Route: IV; Rate: 1000 ml; Site: left antecubital; aa9 04/26 00:30 Follow up: Response: No adverse reaction; IV Status: Completed infusion; IV Intake: aa9 800ml 04/25 23:42 Drug: Famotidine IVP 20 mg Route: IVP; Site: left antecubital; aa9 04/26 00:21 Follow up: Response: No adverse reaction 04/25 23:49 Drug: Ondansetron IVP 4 mg Route: IVP; Site: left antecubital; aa9 04/26 00:21 Follow up: Response: No adverse reaction 04/25 23:56 Drug: morphine IVP or IV 4 mg Route: IVP; Infused Over: 4 mins; Site: left antecubital; 04/26 00:21 Follow up: Response: No adverse reaction; Pain is decreased 00:30 Drug: Tussionex Pennkinetic ER PO Suspension 5 ml Route: PO; aa9 Disposition Summary: 04/26/22 00:07 Discharge Ordered Location: Home kb Condition: Stable kb Diagnosis - Cough kb Followup: kb - With: Emergency Department - When: As needed - Reason: Worsening of condition Followup: kb - With: Private Physician - When: 2 - 3 days - Reason: Recheck today's complaints, Continuance of care, Re-evaluation by your physician Discharge Instructions: - Discharge Summary Sheet kb - Cough, Adult, [id number] kb Forms: - Medication Reconciliation Form kb - Thank You Letter kb - Antibiotic Education kb - Prescription Opioid Use kb Prescriptions: - Tessalon Perles 100 mg Oral Capsule - take 1 capsule by ORAL route every 8 hours As needed; 15 capsule; Refills: 0, kb Product Selection Permitted Signatures: Dispatcher [employer] EDCT Luda Patterson, BUFFING LINE SET UP WORKER-C Luisa Bolanos RN RN ll3 Cindy Fry RN RN aa9 Corrections: (The following items were deleted from the chart) 04/25 23:11 22:24 Constitutional: This is a well developed, well nourished patient who is awake, kb alert, and in no acute distress. Head/Face: Normocephalic, atraumatic. ENT: Moist Mucous membranes Chest/axilla: Normal chest wall appearance and motion. Cardiovascular: Regular rate and rhythm with a normal S1 and S2. No gallops, murmurs, or rubs. No pulse deficits. Respiratory: Respirations even and unlabored. No increased work of breathing. Talking in full sentences Abdomen/GI: Soft, non-tender. No distention Skin: Warm, dry with normal turgor. Normal color. MS/ Extremity: Pulses equal, no cyanosis. Neurovascular intact. Full, normal range of motion. Neuro: Awake and alert, GCS 15, oriented to person, place, time, and situation. Moves all extremities. Normal gait. kb 23:15 23:14 The patient has not recently seen a physician, kb 04/26 00:08 00:07 Acute bronchitis, unspecified kb
== END 2022-04-26 00:31 | disposition home or self-care (01) ==
LOC: ER 19:38
DX: R05.9 Cough, unspecified (principal); R11.10 Vomiting, unspecified; R07.9 Chest pain, unspecified; Z20.822 Contact with and (suspected) exposure to COVID-19
CPT/HCPCS: 96361; 93005; 85025; 36415; 84484; 83690; 80053; 71046; 96375; 96374; 99284; J2405; J7030